=== PATIENT | male | born 1970 | race Caucasian/White ===

== ENCOUNTER 2018-01-20 13:53 | Inpatient (IN) | payer OTHER ==
[~2018-01-20] VITALS: Ht 165.1 cm; Wt 70.0 kg
[2018-01-20 15:23] LABS: HEMATOCRIT 29.7 % (38.0-50.0); HEMOGLOBIN 10.3 G/DL (12.5-16.6); MCH 27.2 PG (29.0-34.0); MCHC 34.7 G/DL (30.0-36.0); MCV 78.6 FL (86-99); PLATELET COUNT 149 K/uL (156-360); RBC DIS.WIDTH-CV 13.7 % (11.8-14.6); RBC DIS.WIDTH-SD 39.3 % (39-53); RED BLOOD COUNT 3.78 M/uL (4.00-5.50); WHITE BLOOD COUNT 16.3 K/uL (4.1-10.2)
[2018-01-20 15:30] LABS: ALBUMIN 2.7 g/dL (3.2-4.8)
[2018-01-20 15:31] LABS: CHLORIDE 101 mEq/L (99-109); POTASSIUM 3.2 mEq/L (3.7-5.4); SODIUM 132 mEq/L (136-147)
[2018-01-20 15:33] LABS: GLUCOSE 70 mg/dL (70-99)
[2018-01-20 15:35] LABS: TOTAL BILIRUBIN 0.5 mg/dL (0.0-1.0)
[2018-01-20 15:36] LABS: ALKALINE PHOSPHATASE 118 IU/L (3-129)
[2018-01-20 15:37] LABS: CREATININE 3.5 mg/dL (0.6-1.3); GFR ESTIMATE (CALCULATED) 20 mL/min/ (58.99-99999)
[2018-01-20 15:38] LABS: AST (GOT) 18 IU/L (2-34); UREA NITROGEN (BUN) 46 mg/dL (9-23)
[2018-01-20 15:39] LABS: ALT (GPT) 16 IU/L (3-49)
[2018-01-20 15:40] LABS: LIPASE 9 U/L (1.0-51.0)
[2018-01-20 16:48] LABS: CREATINE KINASE 38 IU/L (1-294)
[2018-01-20] MEDS ORDERED: METHADONE10 MG PO (17:50)
[2018-01-20 17:52] LABS: APPEARANCE CLOUDY ((CLEAR)); BILIRUBIN NEGATIVE; BLOOD SMALL; COLOR AMBER ((YELLOW)); GLUCOSE (STRIP) NEGATIVE; KETONES NEGATIVE; LEUKOCYTES SMALL; NITRITE NEGATIVE; PROTEIN (STRIP) 100; SPECIFIC GRAVITY 1.023 (1.000-1.030)
[2018-01-20 18:05] LABS: COCAINE PRESUMPTIVE POSITIVE (150 ng/mL); PHENCYCLIDINE NEGATIVE (25 ng/mL); THC CANNABINOIDS NEGATIVE (50 ng/mL)
[2018-01-20 18:06] LABS: AMPHETAMINE NEGATIVE (500 ng/mL); BARBITURATES NEGATIVE (200 ng/mL); BENZODIAZEPINES NEGATIVE (150 ng/mL); BUPRENORPHINE NEGATIVE (10 ng/mL); METHADONE PRESUMPTIVE POSITIVE (200 ng/mL); METHAMPHETAMINE NEGATIVE (500 ng/mL); OPIATES (MORPHINE) PRESUMPTIVE POSITIVE (100 ng/mL); OXYCODONE NEGATIVE (100 ng/mL); PROPOXYPHENE NEGATIVE (300 ng/mL); TRICYCLIC ANTIDEPRESSANTS NEGATIVE (300 ng/mL)
[2018-01-20 18:22] LABS: EPITHELIAL CELLS NONE SEEN /HPF; MUCUS NONE SEEN /LPF; RED BLOOD CELLS RARE /HPF (0-5)
[2018-01-20 18:23] LABS: AMORPHOUS URATES CRYSTALS 1+; BACTERIA 1+ /HPF; UCUL ADDED? YES
[2018-01-20 19:51] LABS: ABS NEUTROPHIL COUNT 15.3; BAND NEUTROPHILS 7.9 % (0-8.0); BURR CELLS 2+; EOSINOPHIL ABS CT 0.1; EOSINOPHILS 0.9 % (0-5.0); HYPOCHROMASIA 1+; LYMPHOCYTES 1.7 % (15.0-45.0); METAMYELOCYTES 1.8 %; MICROCYTOSIS 2+; MONOCYTES 1.7 % (0-9.0); PLAT.SUFFICIENCY ADEQUATE; POIKILOCYTOSIS 1+; POLYCHROMASIA 1+
[2018-01-20 20:38] LABS: INTER. NORMALIZED RATIO 1.2
[2018-01-20 20:40] LABS: PTT 30.6 SEC (25-37)
[2018-01-20 21:00] VITALS: BP 105/59
[2018-01-20 21:08] VITALS: BP 101/77
[2018-01-20 21:33] VITALS: BP 101/55
[2018-01-20 22:00] VITALS: BP 108/77
[2018-01-20 23:00] VITALS: BP 111/55
[2018-01-21] VITALS (31 sets, daily range): BP systolic 83–149; BP diastolic 17–90
[2018-01-21 01:04] LABS: CHLORIDE 105 MEQ/L (99-109); CREATININE 3.3 MG/DL (0.6-1.3); GFR ESTIMATE (CALCULATED) 21 mL/min/ (58.99-99999); GLUCOSE 129 mg/dL (70-99); MAGNESIUM 1.8 mg/dl (1.3-2.7); POTASSIUM 3.8 MEQ/L (3.7-5.4); SODIUM 135 MEQ/L (136-147); UREA NITROGEN (BUN) 45 mg/dL (9-23)
[2018-01-21 06:08] LABS: APPEARANCE CLOUDY ((CLEAR)); BILIRUBIN NEGATIVE; BLOOD MODERATE; COLOR YELLOW ((YELLOW)); GLUCOSE (STRIP) NEGATIVE; KETONES NEGATIVE; LEUKOCYTES NEGATIVE; NITRITE NEGATIVE; PROTEIN (STRIP) 100; SPECIFIC GRAVITY 1.019 (1.000-1.030); UROBILINOGEN 0.2 MG/DL (0.2-1.0)
[2018-01-21 06:12] LABS: BACTERIA RARE /HPF; EPITHELIAL CELLS RARE /HPF; MUCUS TRACE /LPF; RED BLOOD CELLS 40-50 /HPF (0-5); UCUL ADDED? YES
[2018-01-21 06:32] LABS: HEMATOCRIT 27.5 % (38.0-50.0); HEMOGLOBIN 9.3 G/DL (12.5-16.6); MCH 27.1 PG (29.0-34.0); MCHC 33.8 G/DL (30.0-36.0); MCV 80.2 FL (86-99); PLATELET COUNT 148 K/uL (156-360); RBC DIS.WIDTH-CV 14.1 % (11.8-14.6); RBC DIS.WIDTH-SD 41.2 % (39-53); RED BLOOD COUNT 3.43 M/uL (4.00-5.50); WHITE BLOOD COUNT 22.9 K/uL (4.1-10.2)
[2018-01-21 06:52] LABS: CHLORIDE 107 MEQ/L (99-109); CREATININE 2.9 MG/DL (0.6-1.3); GFR ESTIMATE (CALCULATED) 25 mL/min/ (58.99-99999); GLUCOSE 104 mg/dL (70-99); MAGNESIUM 1.9 mg/dl (1.3-2.7); PHOSPHORUS 4.1 mg/dL (2.5-4.9); POTASSIUM 4.1 MEQ/L (3.7-5.4); SODIUM 134 MEQ/L (136-147); UREA NITROGEN (BUN) 44 mg/dL (9-23)
[2018-01-22] VITALS (13 sets, daily range): BP systolic 90–161; BP diastolic 61–97
[2018-01-22 10:06] LABS: BASOPHIL (%) 0.1 % (0-1); EOSINOPHIL (%) 0.1 % (0-5); HEMATOCRIT 26.2 % (38.0-50.0); HEMOGLOBIN 8.7 G/DL (12.5-16.6); IMMATURE GRANULOCYTE (%) 0.8 % (0.0-0.7); LYMPHOCYTE (%) 4.8 % (15-42); MCHC 33.2 G/DL (30.0-36.0); MCV 81.4 FL (86-99); MONOCYTE (%) 5.5 % (3-12); MONOCYTE COUNT 1.2 K/uL (0-0.8); NEUTROPHIL (%) 88.7 % (45-76); NEUTROPHIL COUNT 18.7 K/uL (1.8-6.4); PLATELET COUNT 160 K/uL (156-360); RBC DIS.WIDTH-CV 14.6 % (11.8-14.6); RED BLOOD COUNT 3.22 M/uL (4.00-5.50); WHITE BLOOD COUNT 21.1 K/uL (4.1-10.2)
[2018-01-22 10:25] LABS: ALBUMIN 1.9 G/DL (3.2-4.8); ALKALINE PHOSPHATASE 68 IU/L (3-129); ALT (GPT) 10 IU/L (3-49); AST (GOT) 13 IU/L (2-34); CHLORIDE 106 MEQ/L (99-109); GLUCOSE 124 mg/dL (70-99); MAGNESIUM 2.1 mg/dl (1.3-2.7); PHOSPHORUS 3.6 mg/dL (2.5-4.9); POTASSIUM 4.3 MEQ/L (3.7-5.4); SODIUM 132 MEQ/L (136-147); TOTAL BILIRUBIN 0.5 MG/DL (0.0-1.0); TOTAL PROTEIN 4.5 G/DL (6.4-8.3); UREA NITROGEN (BUN) 35 mg/dL (9-23)
[2018-01-22 10:27] LABS: CREATININE 1.7 MG/DL (0.6-1.3); GFR ESTIMATE (CALCULATED) 46 mL/min/ (58.99-99999)
[2018-01-22 11:36] LABS: HEPATITIS B SURFACE ANTIGEN Nonreactive
[2018-01-22 11:37] LABS: ANTI-HEPATITIS A VIRUS (IGM) Nonreactive
[2018-01-22 11:38] LABS: ANTI-HEPATITIS B CORE (IGM) Nonreactive
[2018-01-22 11:45] LABS: HEPATITIS C ANTIBODY REACTIVE
[2018-01-23 04:00] VITALS: BP 122/76
[2018-01-23 05:34] LABS: BASOPHIL (%) 0.1 % (0-1); EOSINOPHIL (%) 0.2 % (0-5); EOSINOPHIL COUNT 0.1 K/uL (0-0.3); HEMATOCRIT 25.2 % (38.0-50.0); HEMOGLOBIN 8.6 G/DL (12.5-16.6); IMMATURE GRANULOCYTE (%) 1.3 % (0.0-0.7); LYMPHOCYTE (%) 7.1 % (15-42); LYMPHOCYTE COUNT 1.5 K/uL (1.0-2.8); MCHC 34.1 G/DL (30.0-36.0); MONOCYTE (%) 6.1 % (3-12); MONOCYTE COUNT 1.3 K/uL (0-0.8); NEUTROPHIL (%) 85.2 % (45-76); NEUTROPHIL COUNT 17.6 K/uL (1.8-6.4); RBC DIS.WIDTH-CV 14.2 % (11.8-14.6); RBC DIS.WIDTH-SD 40.5 % (39-53); RED BLOOD COUNT 3.19 M/uL (4.00-5.50); WHITE BLOOD COUNT 20.6 K/uL (4.1-10.2)
[2018-01-23 05:42] LABS: PLATELET COUNT 226 K/uL (156-360)
[2018-01-23 05:58] LABS: ALBUMIN 1.9 G/DL (3.2-4.8); ALKALINE PHOSPHATASE 86 IU/L (3-129); ALT (GPT) 6 IU/L (3-49); AST (GOT) 12 IU/L (2-34); CHLORIDE 108 MEQ/L (99-109); CREATININE 1.3 MG/DL (0.6-1.3); GFR ESTIMATE (CALCULATED) > 59 mL/min/ (58.99-99999); GLUCOSE 94 mg/dL (70-99); PHOSPHORUS 3.4 mg/dL (2.5-4.9); POTASSIUM 4.1 MEQ/L (3.7-5.4); SODIUM 134 MEQ/L (136-147); TOTAL PROTEIN 4.6 G/DL (6.4-8.3); UREA NITROGEN (BUN) 29 mg/dL (9-23)
[2018-01-23 06:01] LABS: TOTAL BILIRUBIN 0.7 MG/DL (0.0-1.0)
[2018-01-23 07:59] VITALS: BP 115/73
[2018-01-23 11:48] LABS: HIV-1/2 AB/AG COMBO Nonreactive
[2018-01-23 12:20] VITALS: BP 127/83
[2018-01-23 17:04] VITALS: BP 122/79
[2018-01-23 20:00] VITALS: BP 125/84
[2018-01-23 23:55] VITALS: BP 123/78
[2018-01-24 04:00] VITALS: BP 119/81; BP 122/76
[2018-01-24 05:32] LABS: BASOPHIL (%) 0.4 % (0-1); BASOPHIL COUNT 0.1 K/uL (0-0.1); EOSINOPHIL (%) 0.3 % (0-5); EOSINOPHIL COUNT 0.1 K/uL (0-0.3); HEMATOCRIT 28.8 % (38.0-50.0); HEMOGLOBIN 9.6 G/DL (12.5-16.6); IMMATURE GRANULOCYTE (%) 1.8 % (0.0-0.7); LYMPHOCYTE (%) 7.3 % (15-42); LYMPHOCYTE COUNT 1.6 K/uL (1.0-2.8); MCH 26.6 PG (29.0-34.0); MCHC 33.3 G/DL (30.0-36.0); MCV 79.8 FL (86-99); MONOCYTE (%) 6.7 % (3-12); MONOCYTE COUNT 1.5 K/uL (0-0.8); NEUTROPHIL (%) 83.5 % (45-76); NEUTROPHIL COUNT 18.3 K/uL (1.8-6.4); PLATELET COUNT 319 K/uL (156-360); RBC DIS.WIDTH-CV 14.5 % (11.8-14.6); RBC DIS.WIDTH-SD 42.3 % (39-53); RED BLOOD COUNT 3.61 M/uL (4.00-5.50); WHITE BLOOD COUNT 21.9 K/uL (4.1-10.2)
[2018-01-24 05:54] LABS: ALBUMIN 1.9 G/DL (3.2-4.8); ALKALINE PHOSPHATASE 89 IU/L (3-129); ALT (GPT) 6 IU/L (3-49); AST (GOT) 10 IU/L (2-34); CHLORIDE 106 MEQ/L (99-109); CREATININE 1.4 MG/DL (0.6-1.3); GFR ESTIMATE (CALCULATED) 58 mL/min/ (58.99-99999); GLUCOSE 94 mg/dL (70-99); PHOSPHORUS 4.1 mg/dL (2.5-4.9); POTASSIUM 4.4 MEQ/L (3.7-5.4); SODIUM 135 MEQ/L (136-147); TOTAL BILIRUBIN 0.6 MG/DL (0.0-1.0); UREA NITROGEN (BUN) 24 mg/dL (9-23)
[2018-01-24 07:30] VITALS: BP 136/91
[2018-01-24 11:59] LABS: HCV RNA (LOG IU/mL) 5.95 (())
[2018-01-24 12:00] VITALS: BP 116/83
[2018-01-24 13:32] LABS: C DIFF TOXIN NEGATIVE (NEGATIVE)
[2018-01-24 16:00] VITALS: BP 121/90
[2018-01-24 20:00] VITALS: BP 134/83
[2018-01-24 23:55] VITALS: BP 125/87
[2018-01-25 04:00] VITALS: BP 132/87
[2018-01-25 06:11] LABS: BASOPHIL (%) 0.2 % (0-1); BASOPHIL COUNT 0.1 K/uL (0-0.1); EOSINOPHIL (%) 0.3 % (0-5); EOSINOPHIL COUNT 0.1 K/uL (0-0.3); HEMATOCRIT 28.8 % (38.0-50.0); HEMOGLOBIN 9.5 G/DL (12.5-16.6); IMMATURE GRANULOCYTE (%) 1.5 % (0.0-0.7); LYMPHOCYTE COUNT 1.3 K/uL (1.0-2.8); MCH 26.6 PG (29.0-34.0); MCV 80.7 FL (86-99); MONOCYTE (%) 5.4 % (3-12); MONOCYTE COUNT 1.2 K/uL (0-0.8); NEUTROPHIL (%) 86.6 % (45-76); NEUTROPHIL COUNT 18.3 K/uL (1.8-6.4); NRBC (%) 0.1 /100 WBC (0-0); PLATELET COUNT 360 K/uL (156-360); RBC DIS.WIDTH-CV 14.8 % (11.8-14.6); RBC DIS.WIDTH-SD 43.3 % (39-53); RED BLOOD COUNT 3.57 M/uL (4.00-5.50); WHITE BLOOD COUNT 21.1 K/uL (4.1-10.2)
[2018-01-25 06:37] LABS: ALBUMIN 2.3 G/DL (3.2-4.8); ALKALINE PHOSPHATASE 82 IU/L (3-129); ALT (GPT) 6 IU/L (3-49); AST (GOT) 11 IU/L (2-34); CHLORIDE 107 MEQ/L (99-109); CREATININE 1.5 MG/DL (0.6-1.3); GFR ESTIMATE (CALCULATED) 53 mL/min/ (58.99-99999); GLUCOSE 98 mg/dL (70-99); MAGNESIUM 2.2 mg/dl (1.3-2.7); PHOSPHORUS 4.7 mg/dL (2.5-4.9); POTASSIUM 3.8 MEQ/L (3.7-5.4); SODIUM 136 MEQ/L (136-147); TOTAL BILIRUBIN 0.5 MG/DL (0.0-1.0); UREA NITROGEN (BUN) 23 mg/dL (9-23)
[2018-01-25 06:39] LABS: TOTAL PROTEIN 5.9 G/DL (6.4-8.3)
[2018-01-25 08:00] VITALS: BP 123/90
[2018-01-25 11:00] VITALS: BP 133/91
== END 2018-01-25 12:48 | disposition left against medical advice (07) | DRG 871 ==
LOC: EME 13:53 → 4WEST 19:36 → EDOF 19:36 → ENRESERV 19:41 → 4WEST 20:43 → ENRESERV 01-22 15:38 → 4EAST 01-22 17:09
PROVIDERS: Emergency Medicine; Hospitalist; Internal Medicine; Surgery
PROC: 02HV33Z Insertion of Infusion Device into Superior Vena Cava, Percutaneous Approach (ICD-10-PCS; principal; 2018-01-20)
DX: A41.9 Sepsis, unspecified organism (principal); I26.90 Septic pulmonary embolism without acute cor pulmonale; N17.9 Acute kidney failure, unspecified; R65.21 Severe sepsis with septic shock; D69.6 Thrombocytopenia, unspecified; J18.9 Pneumonia, unspecified organism; I33.0 Acute and subacute infective endocarditis; B95.61 Methicillin susceptible Staphylococcus aureus infection as the cause of diseases classified elsewhere; E87.6 Hypokalemia; B18.2 Chronic viral hepatitis C; I42.9 Cardiomyopathy, unspecified; E86.9 Volume depletion, unspecified; E87.1 Hypo-osmolality and hyponatremia; J90 Pleural effusion, not elsewhere classified; I36.1 Nonrheumatic tricuspid (valve) insufficiency; D50.9 Iron deficiency anemia, unspecified; F17.210 Nicotine dependence, cigarettes, uncomplicated; F14.90 Cocaine use, unspecified, uncomplicated; F11.20 Opioid dependence, uncomplicated; Z91.19 Patient's noncompliance with other medical treatment and regimen
CPT/HCPCS: 71045; 71250; 76705; 76770; 78582; 80048; 80048 91; 80053; 80074; 80202; 81003; 82330; 82550; 83605; 83690; 83735; 84100; 84999; 85007; 85025; 85027; 85379; 85610; 85730; 87040; 87077; 87086; 87147; 87186; 87389; 87493; 87522 90; 87641; 87801; 93005; 93306; 94010; 94640; 94640 76; 94667; 94668; 99202; 99281; 99285; A9540; A9567; C1751; J0690; J0692; J1644; J1650; J3010; J3370; J3475; J3480; J7030; J7050; S0028; S0032

== ENCOUNTER 2018-01-29 16:22 | Emergency (ER) | payer OTHER ==
[~2018-01-29] VITALS: Ht 165.1 cm; Wt 72.3 kg
[~2018-01-29 16:22] MED LIST: METHADONE10 MG/1 M1 PO
[2018-01-29 18:00] LABS: BASOPHIL (%) 0.2 % (0-1); EOSINOPHIL (%) 0.2 % (0-5); HEMATOCRIT 25.5 % (38.0-50.0); HEMOGLOBIN 8.6 G/DL (12.5-16.6); IMMATURE GRANULOCYTE (%) 0.6 % (0.0-0.7); LYMPHOCYTE (%) 6.6 % (15-42); LYMPHOCYTE COUNT 1.2 K/uL (1.0-2.8); MCH 27.6 PG (29.0-34.0); MCHC 33.7 G/DL (30.0-36.0); MCV 81.7 FL (86-99); MONOCYTE (%) 5.3 % (3-12); MONOCYTE COUNT 0.9 K/uL (0-0.8); NEUTROPHIL (%) 87.1 % (45-76); NEUTROPHIL COUNT 15.5 K/uL (1.8-6.4); PLATELET COUNT 450 K/uL (156-360); RBC DIS.WIDTH-CV 14.8 % (11.8-14.6); RBC DIS.WIDTH-SD 44.2 % (39-53); RED BLOOD COUNT 3.12 M/uL (4.00-5.50); WHITE BLOOD COUNT 17.8 K/uL (4.1-10.2)
[2018-01-29 18:11] LABS: ALBUMIN 2.5 g/dL (3.2-4.8)
[2018-01-29 18:12] LABS: CHLORIDE 102 mEq/L (99-109); POTASSIUM 4.5 mEq/L (3.7-5.4); SODIUM 132 mEq/L (136-147)
[2018-01-29 18:14] LABS: GLUCOSE 74 mg/dL (70-99)
[2018-01-29 18:16] LABS: TOTAL BILIRUBIN 0.4 mg/dL (0.0-1.0)
[2018-01-29 18:17] LABS: ALKALINE PHOSPHATASE 102 IU/L (3-129)
[2018-01-29 18:18] LABS: CREATININE 1.1 mg/dL (0.6-1.3); GFR ESTIMATE (CALCULATED) > 59 mL/min/ (58.99-99999)
[2018-01-29 18:19] LABS: AST (GOT) 19 IU/L (2-34); UREA NITROGEN (BUN) 15 mg/dL (9-23)
[2018-01-29 18:20] LABS: ALT (GPT) 9 IU/L (3-49)
[2018-01-29] MEDS ORDERED: LASIX20 MG PO (19:21)
[2018-01-29] MEDS ORDERED: PROVENTIL HFA6.7 GM IH (19:22)
[2018-01-29 19:33] VITALS: BP 161/121
== END 2018-01-29 19:33 | disposition left against medical advice (07) ==
LOC: EME 16:22
PROVIDERS: Emergency Medicine
DX: I50.9 Heart failure, unspecified (principal); R60.0 Localized edema; I38 Endocarditis, valve unspecified; F17.200 Nicotine dependence, unspecified, uncomplicated
CPT/HCPCS: 71046; 80053; 83880; 85025; 99281; 99284

== ENCOUNTER 2018-02-05 11:59 | Inpatient (IN) | payer OTHER ==
[~2018-02-05] VITALS: Ht 165.1 cm; Wt 64.5 kg
[~2018-02-05 11:59] MED LIST changes: +LASIX20 MG PO; +PROVENTIL HFA6.7 GM IH
[2018-02-05 14:36] LABS: BASOPHIL (%) 0.7 % (0-1); BASOPHIL COUNT 0.1 K/uL (0-0.1); EOSINOPHIL COUNT 0.3 K/uL (0-0.3); HEMATOCRIT 27.4 % (38.0-50.0); HEMOGLOBIN 8.8 G/DL (12.5-16.6); IMMATURE GRANULOCYTE (%) 0.5 % (0.0-0.7); LYMPHOCYTE (%) 7.7 % (15-42); LYMPHOCYTE COUNT 0.9 K/uL (1.0-2.8); MCH 26.7 PG (29.0-34.0); MCHC 32.1 G/DL (30.0-36.0); MONOCYTE (%) 6.4 % (3-12); MONOCYTE COUNT 0.8 K/uL (0-0.8); NEUTROPHIL (%) 82.7 % (45-76); NEUTROPHIL COUNT 10.1 K/uL (1.8-6.4); PLATELET COUNT 403 K/uL (156-360); RBC DIS.WIDTH-CV 14.8 % (11.8-14.6); WHITE BLOOD COUNT 12.2 K/uL (4.1-10.2)
[2018-02-05 14:45] LABS: INTER. NORMALIZED RATIO 1.5
[2018-02-05 14:47] LABS: PTT 30.9 SEC (25-37)
[2018-02-05 14:53] LABS: ALBUMIN 3.1 g/dL (3.2-4.8); CHLORIDE 98 mEq/L (99-109); POTASSIUM 3.7 mEq/L (3.7-5.4)
[2018-02-05 14:55] LABS: GLUCOSE 97 mg/dL (70-99)
[2018-02-05 14:59] LABS: ALKALINE PHOSPHATASE 103 IU/L (3-129); CREATININE 1.1 mg/dL (0.6-1.3); GFR ESTIMATE (CALCULATED) > 59 mL/min/ (58.99-99999)
[2018-02-05 15:00] LABS: AST (GOT) 27 IU/L (2-34); DIRECT BILIRUBIN 0.2 mg/dL (0.0-0.3); UREA NITROGEN (BUN) 15 mg/dL (9-23)
[2018-02-05 15:02] LABS: ALT (GPT) 16 IU/L (3-49); SODIUM 139 mEq/L (136-147); TOTAL BILIRUBIN 0.3 mg/dL (0.0-1.0); TOTAL PROTEIN 8.7 g/dL (6.4-8.3)
[2018-02-05 15:04] LABS: TROP-I INTERPRETATION NEGATIVE; TROPONIN-I < 0.01 ng/mL (0.0-0.30)
[2018-02-05] MEDS ORDERED: LEVAQUIN750 MG PO (16:31)
[2018-02-05 18:02] LABS: APPEARANCE CLEAR ((CLEAR)); BILIRUBIN NEGATIVE; BLOOD NEGATIVE; COLOR YELLOW ((YELLOW)); GLUCOSE (STRIP) NEGATIVE; KETONES NEGATIVE; LEUKOCYTES NEGATIVE; NITRITE NEGATIVE; PROTEIN (STRIP) NEGATIVE; SPECIFIC GRAVITY 1.017 (1.000-1.030); UCUL ADDED? NO; UROBILINOGEN 0.2 MG/DL (0.2-1.0)
[2018-02-05 19:25] VITALS: BP 150/92
[2018-02-06 00:05] VITALS: BP 108/65
[2018-02-06 03:40] VITALS: BP 123/71
[2018-02-06 05:23] LABS: HEMATOCRIT 25.2 % (38.0-50.0); MCH 26.2 PG (29.0-34.0); MCHC 31.7 G/DL (30.0-36.0); MCV 82.6 FL (86-99); PLATELET COUNT 360 K/uL (156-360); RBC DIS.WIDTH-SD 45.2 % (39-53); RED BLOOD COUNT 3.05 M/uL (4.00-5.50); WHITE BLOOD COUNT 9.2 K/uL (4.1-10.2)
[2018-02-06 06:16] LABS: CHLORIDE 102 MEQ/L (99-109); CREATININE 1.1 MG/DL (0.6-1.3); GFR ESTIMATE (CALCULATED) > 59 mL/min/ (58.99-99999); GLUCOSE 103 mg/dL (70-99); POTASSIUM 3.6 MEQ/L (3.7-5.4); SODIUM 140 MEQ/L (136-147); UREA NITROGEN (BUN) 16 mg/dL (9-23)
[2018-02-06 07:55] VITALS: BP 126/79
[2018-02-06 11:25] VITALS: BP 117/82
[2018-02-06 19:20] VITALS: BP 122/92
[2018-02-06 23:33] VITALS: BP 157/76
[2018-02-07 03:07] VITALS: BP 133/98
[2018-02-07 08:11] LABS: CHLORIDE 100 MEQ/L (99-109); CREATININE 1.3 MG/DL (0.6-1.3); GFR ESTIMATE (CALCULATED) > 59 mL/min/ (58.99-99999); GLUCOSE 107 mg/dL (70-99); SODIUM 139 MEQ/L (136-147); UREA NITROGEN (BUN) 18 mg/dL (9-23)
[2018-02-07 08:12] LABS: POTASSIUM 4.7 MEQ/L (3.7-5.4)
[2018-02-07 08:56] VITALS: BP 135/89
== END 2018-02-07 09:27 | disposition left against medical advice (07) | DRG 290 ==
LOC: EME 11:59 → RME 11:59 → EDOF 15:58 → 4EAST 15:58 → ENRESERV 16:07 → 4EAST 19:23
PROVIDERS: Emergency Medicine; Family Medicine
DX: I33.0 Acute and subacute infective endocarditis (principal); F11.10 Opioid abuse, uncomplicated; B19.20 Unspecified viral hepatitis C without hepatic coma; E87.6 Hypokalemia; F17.200 Nicotine dependence, unspecified, uncomplicated; I50.810 Right heart failure, unspecified; F12.90 Cannabis use, unspecified, uncomplicated; B95.61 Methicillin susceptible Staphylococcus aureus infection as the cause of diseases classified elsewhere; Z87.01 Personal history of pneumonia (recurrent); Z53.21 Procedure and treatment not carried out due to patient leaving prior to being seen by health care provider; I07.1 Rheumatic tricuspid insufficiency
CPT/HCPCS: 71046; 80048; 80076; 81003; 83605; 83880; 84484; 85025; 85027; 85610; 85730; 87040; 93005; 99281; 99285; J1650; J7050; S0032